=== PATIENT | male | born 1950 | race Caucasian/White ===

== ENCOUNTER → 2021-05-22 | Outpatient (CLI) | payer MEDICARE ==
[~2021-05-22] MED LIST: B 12 PO; FOLBIC RF TABL1 EACH PO; GLUCOSAMINE; GLUCOSAMINE PO; LISINOPRIL10 MG PO; MULTI COMPLETE1 EACH PO; MULTI VIT PO; PERCOCET 5/325 T1 EA PO; PRAVACHOL40 MG PO; PRAVACHOL80 MG PO; PRINIVIL10 MG PO; PROBIOTIC1 EAC3 PO; SYNTHROID25 MCG PO; SYNTHROID50 MCG PO
== END ==
LOC: KOH-I 12:48
DX: J32.9 Chronic sinusitis, unspecified (principal)
CPT/HCPCS: 70486

== ENCOUNTER → 2021-09-01 | Day surgery (SDC) | payer MEDICARE ==
[~2021-09-01] MED LIST changes: +FLOMAX0.4 MG PO; +XYZAL5 MG PO
== END | disposition home or self-care (01) ==
LOC: OR 06:25
DX: J32.8 Other chronic sinusitis (principal); I10 Essential (primary) hypertension; E78.00 Pure hypercholesterolemia, unspecified; E11.9 Type 2 diabetes mellitus without complications; E03.9 Hypothyroidism, unspecified; Z79.899 Other long term (current) drug therapy; Z20.822 Contact with and (suspected) exposure to COVID-19
CPT/HCPCS: 87070; 87205; C1726; J0171; J0690; J1100; J2405; J2704; J3010; J7030; J7120